=== PATIENT | male | born 1990 | race Caucasian/White ===

== ENCOUNTER 2019-10-29 13:21 | Emergency (ER) | payer MEDICAID ==
[~2019-10-29] VITALS: Ht 180.3 cm; Wt 69.0 kg
[2019-10-29 13:29] VITALS: BP 121/80
== END 2019-10-29 15:45 | disposition home or self-care (01) ==
LOC: ER 13:21
DX: L73.9 Follicular disorder, unspecified (principal); R21 Rash and other nonspecific skin eruption; Z87.891 Personal history of nicotine dependence
CPT/HCPCS: 99282; 99283